=== PATIENT | male | born 1950 | race Asian ===

== ENCOUNTER 2018-06-09 00:33 | Emergency (ER) | payer MEDICARE ==
[2018-06-09] MEDS: DIPHENHYDRAMINE 25 MG CAP PO (01:41)
[2018-06-09] MEDS: FAMOTIDINE 20 MG TAB PO ×2 (01:41→01:42)
== END 2018-06-09 02:45 | disposition home or self-care (01) ==
LOC: E/R 00:33
DX: L50.9 Urticaria, unspecified (principal); E11.9 Type 2 diabetes mellitus without complications; Z21 Asymptomatic human immunodeficiency virus [HIV] infection status
CPT/HCPCS: 99282